=== PATIENT | female | born 1990 | race Caucasian/White ===

== ENCOUNTER 2018-09-14 20:11 | Emergency (ER) | payer OTHER ==
[~2018-09-14] VITALS: Ht 157.5 cm; Wt 93.6 kg
[2018-09-14] MEDS ORDERED: TRAZ-163 PO (20:20)
[2018-09-14 21:13] LABS: BASO % 0.3 % (0.0-1.0); EOS # 0.4 10^3/uL (0.0-0.50); EOS % 3.6 % (0.0-3.0); HEMATOCRIT 41.8 % (36.0-47.0); HEMOGLOBIN 14.2 g/dl (12.0-15.5); LYMPH # 3.3 10^3/uL (1.5-6.5); LYMPH % 29.2 % (24.0-44.0); MEAN CORPUSCULAR HEMOGLOBIN 30.8 pg (27.0-33.0); MEAN CORPUSCULAR VOLUME 90.7 fl (80.0-96.0); MONO # 0.6 10^3/uL (0.0-0.8); MONO % 4.8 % (0.0-5.0); NEUTROPHILS # 7.1 10^3/uL (1.8-7.7); NEUTROPHILS % 61.8 % (36.0-66.0); PLATELET COUNT, AUTOMATED 257 10^3/uL (150-450); RED BLOOD COUNT 4.61 10^6/uL (4.00-5.40); WHITE BLOOD COUNT 11.5 10^3/uL (4.0-10.0)
[2018-09-14 21:37] LABS: AMYLASE 27 U/L (25-115); BLOOD UREA NITROGEN 19 MG/DL (7-18); CALCIUM LEVEL 8.9 MG/DL (8.5-10.1); CARBON DIOXIDE LEVEL 25 MEQ/L (21-32); CHLORIDE LEVEL 110 MEQ/L (98-107); CREATININE FOR GFR 0.74 MG/DL (0.55-1.30); GLOMERULAR FILTRATION RATE > 60.0 (>60); GLUCOSE, FASTING 123 MG/DL (70-100); HCG, SERUM QUANTITATIVE < 1.0 MIU/ML; LIPASE 87 U/L (73-393); POTASSIUM SERUM 4.1 MEQ/L (3.5-5.1); SODIUM LEVEL 141 MEQ/L (136-145)
[2018-09-14] MEDS ORDERED: DICYCLOMINE 10 MG CAP PO ONE (22:00)
--- NOTE | 2018-09-14 23:23 | REPVR ---
EXAM: US Abdomen Limited, Right Upper Quadrant EXAM DATE/TIME: 09/14/2018 10:50 PM CLINICAL HISTORY: 28 years old, female; Pain; Abdominal pain; Acute; Additional info: Ruq abd pain TECHNIQUE: Imaging protocol: Real-time ultrasound of the abdomen with image documentation. Examination was focused on the right upper quadrant. COMPARISON: No relevant prior studies available. FINDINGS: Liver: Limited visualization of the liver which appears to be attenuating. Gallbladder: The gallbladder demonstrates no wall thickening measuring 1 mm and no stones. The gallbladder appears somewhat contracted measuring 1.7 cm in diameter. Small gallbladder polyp measuring 3 mm. Ringdown gallbladder consistent with adenomyomatosis. Common bile duct: The CBD measures 5 mm. Pancreas: The pancreas appears grossly normal in the head and body. The tail is obscured by gas. Right kidney: Right kidney is normal and measures 12.3 cm. IMPRESSION: 1. Somewhat contracted gallbladder with 3 mm gall bladder polyp and evidence of adenomyomatosis. No gallstones or wall thickening. 2. Probable fatty infiltration of the liver. 3. Otherwise negative right upper quadrant sonogram. Electronically signed by: Yovany Minor On 09/14/2018 23:23:09 PM
[2018-09-14] MEDS ORDERED: DICY10CA13 PO (23:33)
[2018-09-14 23:56] VITALS: BP 116/68
== END 2018-09-14 23:57 | disposition home or self-care (01) ==
LOC: M ED 20:11
DX: K80.50 Calculus of bile duct without cholangitis or cholecystitis without obstruction (principal)